=== PATIENT | male | born 1970 | race Caucasian/White ===

== ENCOUNTER 2017-04-29 22:04 | Emergency (ER) | payer BC ==
[2017-04-29] MEDS ORDERED: MORPHINE SULFATE 10 MG/ML INJ IV ONE (22:34)
[2017-04-29] MEDS ORDERED: ASPIRIN 81 MG TABLET, CHEWABLE PO ONE (22:34)
--- NOTE | 2017-04-29 22:36 | ER Document Report ---
ED Medical Screen (RME) - General Chief Complaint: Chest Pain > 30 Stated Complaint: CHEST PAIN Time Seen by Provider: 04/29/17 22:30 Mode of Arrival: Ambulatory Information source: Patient - HPI Patient complains to provider of: Chest pain Onset: Other - 4-5 days, worsening today Notes: 04/29/17 22:35 Patient is a 46-year-old male with a history of mitral valve prolapse, who was recently on several courses of antibiotics for lymphangitis of the left upper extremity, he finished vancomycin on Tuesday, over the past 4-5 days he developed some midsternal chest pain, which is now radiating to the left upper extremity with a tightness sensation, reports he had diaphoresis at onset of pain this evening, pain is unrelieved by hydrocodone which he took earlier today
--- NOTE | 2017-04-29 22:48 | EKG REPORT ---
SEVERITY:- ABNORMAL ECG - SINUS RHYTHM PROBABLE LEFT ATRIAL ABNORMALITY RIGHT BUNDLE BRANCH BLOCK : Confirmed by: Elida Varela 29-Apr-2017 22:48:18
[2017-04-29 22:58] LABS: HEMATOCRIT 42.8 % (37.9-51.0); HEMOGLOBIN 14.8 g/dL (13.5-17.0); HGB HCT DIFFERENCE 1.6; MEAN CORPUSCULAR HGB CONC 34.6 g/dL (32.0-36.0); MEAN CORPUSCULAR VOLUME 87 fl (80-97); RED BLOOD COUNT 4.94 10^6/uL (4.35-5.55); RED CELL DISTRIBUTION WIDTH 14.1 % (11.5-14.0); WHITE BLOOD COUNT 10.5 10^3/uL (4.0-10.5)
[2017-04-29 23:14] LABS: BASOPHILS % (MANUAL) 0 % (0-2); EOSINOPHILS % (MANUAL) 1 % (0-6); LYMPHOCYTES % (MANUAL) 32 % (13-45); TOTAL CELLS COUNTED 100; TOXIC GRANULATION SLIGHT
[2017-04-29 23:15] LABS: ANISOCYTOSIS SLIGHT
[2017-04-29 23:16] LABS: ALBUMIN 4.3 g/dL (3.5-5.0); ANION GAP 10 (5-19); ASPARTATE AMINO TRANSFERASE 29 U/L (17-59); BLOOD UREA NITROGEN 19 mg/dL (7-20); CALCIUM 9.3 mg/dL (8.4-10.2); CARBON DIOXIDE 30 mmol/L (22-30); CHLORIDE 102 mmol/L (98-107); GLUCOSE 97 mg/dL (75-110); POTASSIUM 4.4 mmol/L (3.6-5.0); SODIUM 142.3 mmol/L (137-145)
--- NOTE | 2017-04-29 23:16 | RADIOLOGY REPORT (SQ) ---
EXAM DESCRIPTION: CHEST PA/LAT COMPLETED DATE/TIME: 04/29/2017 11:08 pm REASON FOR STUDY: cp COMPARISON: None. EXAM PARAMETERS: NUMBER OF VIEWS: two views TECHNIQUE: Digital Frontal and Lateral radiographic views of the chest acquired. RADIATION DOSE: NA LIMITATIONS: none FINDINGS: LUNGS AND PLEURA: No opacities, masses or pneumothorax. No pleural effusion. MEDIASTINUM AND HILAR STRUCTURES: No masses or contour abnormalities. HEART AND VASCULAR STRUCTURES: Heart normal size. No evidence for failure. BONES: No acute findings. Pectus excavatum. HARDWARE: None in the chest. OTHER: No other significant finding. IMPRESSION: NO ACUTE CARDIOPULMONARY PROCESS. PECTUS EXCAVATUM. TECHNICAL DOCUMENTATION: JOB ID: [id number] [employer]- All Rights Reserved
[2017-04-29 23:19] LABS: ALANINE AMINOTRANSFERASE 56 U/L (21-72); ALKALINE PHOSPHATASE 61 U/L (38-126); BILIRUBIN,DIRECT 0.4 mg/dL (0.0-0.4); BILIRUBIN,TOTAL 0.5 mg/dL (0.2-1.3); CREATINE KINASE 42 U/L (55-170)
[2017-04-29 23:32] LABS: TROPONIN I < 0.012 ng/mL
[2017-04-30] MEDS ORDERED: KETOROLAC TROMETHAMINE INJ/PF 30 MG/1 ML SDV IV ONE (00:27)
[2017-04-30] MEDS ORDERED: LIDOCAINE 5% (700 MG) TRANSDERMAL ADH..PATCH TP ONE (00:40)
[2017-04-30] MEDS ORDERED: CEPHALEXIN 500 MG CAPSULE PO ONE (00:40)
--- NOTE | 2017-04-30 00:42 | ER Document Report ---
ED General - General Chief Complaint: Chest Pain > 30 Stated Complaint: CHEST PAIN Time Seen by Provider: 04/29/17 22:30 Mode of Arrival: Ambulatory Notes: Patient is a 46-year-old male with a past medical history of pectus excavatum who presents with 5 days of right-sided chest pain. Patient became concerned when the pain became constant for the last 2 days. Patient states that there is a one specific point on his right central lower chest in the intercostal space that is severely painful. He describes the pain as a constant, stabbing, severe pain. Nothing seems to worsen the pain and he states it does improve somewhat with NSAIDs but then the pain returns after the medication wears off. He has no history of similar symptoms in the past. He denies any associated shortness of breath, pleuritic pain, hemoptysis, unilateral leg swelling, nausea or vomiting. He states occasionally when the pain becomes very severe he does become diaphoretic resolves after the pain improved. He has no cardiac history. He is visiting from out of town so he has been unable see a primary care physician. Of note, patient also states that he has had an area of erythema and pain to the right forearm where he had an IV placed and vancomycin infused for thrombophlebitis of his left upper extremity. - Related Data Allergies/Adverse Reactions: cefaclor [From Ceclor] Allergy (Verified 04/29/17 22:36) Past Medical History - General Information source: Patient - Social History Smoking Status: Never Smoker Frequency of alcohol use: None Drug Abuse: None Lives with: Spouse/Significant other Family History: Reviewed & Not Pertinent Patient has suicidal ideation: No Patient has homicidal ideation: No Renal/ Medical History: Denies: Hx Peritoneal Dialysis Review of Systems - Review of Systems Notes: Constitutional: Negative for fever. HENT: Negative for sore throat. Eyes: Negative for visual changes. Cardiovascular: Positive for chest pain. Respiratory: Negative for shortness of breath. Gastrointestinal: Negative for abdominal pain, vomiting or diarrhea. Genitourinary: Negative for dysuria. Musculoskeletal: Negative for back pain. Skin: Positive for rash. Neurological: Negative for headaches, weakness or numbness. 10 point ROS negative except as marked above and in HPI. Physical Exam - Vital signs Vitals: Temp Pulse BP Pulse Ox 98.2 F 73 130/88 H 99 04/29/17 22:34 04/29/17 22:34 04/29/17 22:34 04/29/17 22:34 Interpretation: Normal Notes: PHYSICAL EXAMINATION: GENERAL: Well-appearing, well-nourished and in no acute distress. HEAD: Atraumatic, normocephalic. EYES: Pupils equal round and reactive to light, extraocular movements intact, sclera anicteric, conjunctiva are normal. ENT: nares patent, oropharynx clear without exudates. Moist mucous membranes. NECK: Normal range of motion, supple without lymphadenopathy LUNGS: Breath sounds clear to auscultation bilaterally and equal. No wheezes rales or rhonchi. HEART: Regular rate and rhythm without murmurs Chest wall: Point tenderness to palpation of the lower central rib spaces ABDOMEN: Soft, tenderness to the right upper quadrant and epigastrium on palpation with a positive Manning sign, normoactive bowel sounds. No guarding, no rebound. No masses appreciated. EXTREMITIES: Normal range of motion, no pitting or edema. No cyanosis. NEUROLOGICAL: No focal neurological deficits. Moves all extremities spontaneously and on command. PSYCH: Normal mood, normal affect. SKIN: Warm, Dry, normal turgor, no rashes or lesions noted. Course - Re-evaluation Re-evalutation: 04/30/17 00:41 Patient presents with 1 week of persistent pain to the right lower intercostal rib space. There is point tenderness to the area. Clinical history and exam are most consistent with musculoskeletal irritation. Low clinical suspicion for ACS given clinical history, exam, EKG without ST elevations or depressions, and negative initial troponin. HEART score less than or equal to 3. PE also seems unlikely given clinical history, absence of tachycardia or dyspnea. Patient is PERC criteria negative. CXR without evidence of pneumothorax or pneumonia. No widened mediastinum. Aortic dissection also seems unlikely given history, symmetric pulses, CXR, and vitals. Patient did also have some right upper quadrant abdominal tenderness as well as positive Manning sign on palpation of the abdomen so I will also obtain a right upper quadrant ultrasound to further evaluate for possible acute cholecystitis as etiology of the patient's right upper abdominal and right lower thoracic pain. Also obtain a lipase as patient did also have epigastric abdominal discomfort on palpation. I do not believe serial troponins are indicated as patient has had this pain for greater than 1 week and has been continuous for the past 2 days. Likewise patient's clinical history is not all consistent with ACS. His EKG does show right bundle branch block but he reports that he has a known history of this. Patient also has a cellulitis of the right forearm likely secondary to a venipuncture that he had done approximately a week ago. This will be treated with cephalexin HEART Score: History:0 EC Age:0 Risk Factors:0 Troponin:0 Total: 0 04/30/17 02:38 Right upper quadrant quadrant ultrasound is unremarkable. Pain improved. Final assessment: Chest pain in a patient without evidence of cardiac or other serious etiology on workup today. I discussed with patient that, based on their age, risk factors and emergency department testing today, the likelihood that their symptoms are related to a heart attack is very low (estimated risk of heart attack or over the next 30 days of less than 1%). The patient demonstrates decision making capacity and has verbalized an understanding of these risks to me. Based on this, the patient has chosen to follow-up as an outpatient. Usual chest pain return precautions reviewed. The patient states understanding and agreement with this plan. - Vital Signs Vital signs: Temp Pulse Resp BP Pulse Ox 98.2 F 73 36 H 125/88 H 96 04/29/17 22:34 04/29/17 22:34 04/30/17 03:01 04/30/17 03:01 04/30/17 03:01 - Laboratory Result Diagrams: 04/29/17 22:49 04/29/17 22:49 Laboratory results interpreted by me: 04/29/17 04/29/17 22:49 22:49 RDW 14.1 H Creatine Kinase 42 L - Diagnostic Test Radiology reviewed: Image reviewed, Reports reviewed Radiology results interpreted by me: 04/30/17 03:50 Chest x-ray: No acute infiltrate or pneumothorax - EKG Interpretation by Me Additional EKG results interpreted by me: 04/30/17 03:51 Normal sinus rhythm. Rate 68. Right bundle branch block. No ST elevations or depressions. QTC is 473. Discharge - Discharge Clinical Impression: Right-sided chest wall pain, Cellulitis of forearm, right Condition: Good Disposition: HOME, SELF-CARE Additional Instructions: You were seen today for chest pain. The exact cause of your pain is unclear. However, based on your cardiac enzyme testing, chest x-ray, and EKG it does not appear that it is from an immediately life-threatening cause at this time. Please return to emergency department immediately if you have worsening of your chest pain, shortness of breath, vomiting, become unable to exert yourself due to pain or difficulty breathing, you pass out, or have any pain that radiates into your arms, jaw, or back. Please also return if you have any additional symptoms that are concerning to you. The rash is likely due to infection of your skin. You need to take the antibiotics as prescribed. Do not stop even if the rash goes away until you have completed all the antibiotics. The area of redness was traced out here in the emergency department with a marking pen. You need to return to emergency department if the redness spreads outside of this area by more than 2 cm in any direction. You should also return if you develop fevers with temperature greater than 101, persistent vomiting, worsening pain, or have any other symptoms that are concerning to you. Prescriptions: Cephalexin Monohydrate [Keflex 500 mg Capsule] 500 mg PO Q6H 7 Days capsule
[2017-04-30 00:43] LABS: ADD ON TESTING BLD IN LAB ACKNOWLEDGE
--- NOTE | 2017-04-30 02:09 | RADIOLOGY REPORT (SQ) ---
EXAM DESCRIPTION: U/S ABDOMEN LIMITED W/O DOP CLINICAL HISTORY: ruq pain COMPARISON: None. TECHNIQUE: Real-time sonographic images of the right upper abdomen were obtained using a curved multihertz transducer. FINDINGS: The visualized portions of the pancreas are unremarkable. The visualized portions of the aorta and IVC are unremarkable. The liver has normal contour and echogenicity. Common bile duct measuring 0.3 cm. Hepatopedal flow in the portal vein. The gallbladder has a normal appearance. No gallstones identified. No wall thickening or pericholecystic fluid. Negative reported sonographic Manning sign. The right kidney measures 9.5 cm in length. No hydronephrosis, solid renal mass, or shadowing calculi. IMPRESSION: 1. No abnormality identified in the right upper abdomen by ultrasound criteria.
[2017-04-30 03:16] VITALS: BP 125/88
== END 2017-04-30 03:31 | disposition home or self-care (01) ==
LOC: ER 22:04
DX: R07.89 Other chest pain (principal); L03.113 Cellulitis of right upper limb
CPT/HCPCS: 93005; 99285; 96374; 96375; 36415; 82553; 82550; 83690; 85025; 80053; 84484; 71020; 76705; 93010; J1885; J2270

== ENCOUNTER 2017-05-01 23:59 | Emergency (ER) | payer BC ==
[2017-05-02] MEDS ORDERED: ASPIRIN 81 MG TABLET, CHEWABLE PO ONE (01:01)
[2017-05-02 01:12] LABS: ABSOLUTE BASOPHILS # (AUTO) 0.1 10^3/uL (0.0-0.2); ABSOLUTE EOSINOPHILS # (AUTO) 0.1 10^3/uL (0.0-0.6); ABSOLUTE MONOCYTES (AUTO) 1.4 10^3/uL (0.1-1.4); ABSOLUTE NEUT (AUTO) 7.2 10^3/uL (1.7-8.2); BASOPHILS % (AUTO) 0.6 % (0-2); HEMATOCRIT 42.4 % (37.9-51.0); HEMOGLOBIN 14.6 g/dL (13.5-17.0); HGB HCT DIFFERENCE 1.4; LYMPHOCYTES % (AUTO) 18.5 % (13-45); MEAN CORPUSCULAR HEMOGLOBIN 29.4 pg (27.0-33.4); MEAN CORPUSCULAR HGB CONC 34.3 g/dL (32.0-36.0); MEAN CORPUSCULAR VOLUME 86 fl (80-97); MONOCYTES % (AUTO) 12.8 % (3-13); RED BLOOD COUNT 4.95 10^6/uL (4.35-5.55); RED CELL DISTRIBUTION WIDTH 14.2 % (11.5-14.0); SEGMENTED NEUTROPHILS % (AUTO) 67.1 % (42-78); WHITE BLOOD COUNT 10.7 10^3/uL (4.0-10.5)
[2017-05-02 01:44] LABS: ALANINE AMINOTRANSFERASE 60 U/L (21-72); ALBUMIN 4.4 g/dL (3.5-5.0); ALKALINE PHOSPHATASE 74 U/L (38-126); ANION GAP 14 (5-19); ASPARTATE AMINO TRANSFERASE 33 U/L (17-59); BILIRUBIN,DIRECT 0.5 mg/dL (0.0-0.4); BILIRUBIN,TOTAL 0.7 mg/dL (0.2-1.3); BLOOD UREA NITROGEN 17 mg/dL (7-20); CALCIUM 9.6 mg/dL (8.4-10.2); CARBON DIOXIDE 25 mmol/L (22-30); CHLORIDE 104 mmol/L (98-107); CREATINE KINASE 78 U/L (55-170); CREATININE RESULT 1.19 mg/dL (0.52-1.25); GLUCOSE 117 mg/dL (75-110); POTASSIUM 4.1 mmol/L (3.6-5.0); SODIUM 143.4 mmol/L (137-145); TOTAL PROTEIN 7.2 g/dL (6.3-8.2)
[2017-05-02 01:55] LABS: CREATINE KINASE MB 1.51 ng/mL (<4.55)
[2017-05-02 01:56] LABS: TROPONIN I < 0.012 ng/mL
--- NOTE | 2017-05-02 03:01 | ER Document Report ---
ED Cardiac - General Chief Complaint: Chest Pain Stated Complaint: NECK PAIN Time Seen by Provider: 05/02/17 02:58 Mode of Arrival: Ambulatory Information source: Patient TRAVEL OUTSIDE OF THE [place] IN LAST 30 DAYS: No - HPI Patient complains to provider of: Chest pain, Other - NECK PAIN Use of: denies: Alcohol, Amphetamines, Bath salts, Caffeine, Cocaine, Decongestants Was the onset of pain: Gradual When did pain begin: SAT. 04/23 Is the pain a: New problem Chest pain location: Substernal Quality of pain: Mild, Tightness Chest pain radiation location: Neck - RIGHT Severity now: Mild Severity at worst: Moderate Cardiac risk factors: denies: Diabetes, Hypertension, Smoker, + Family history, Dyslipidemia, Hx CHF, Hx VA Positive cardiac history: No Associated symptoms: denies: Diaphoresis, Nausea/vomiting, Shortness of breath Exacerbated by: Denies Relieved by: Nothing Similar symptoms previously: No Recently seen / treated by doctor: Yes - DELILAH Cruz, 04/29 Notes: RECENTLY TREATED FOR LYMPHANGITIS W/ IV VANCOMYCIN BY PROVIDER IN [place], LAST DOSE 04/24. ASPIRIN WITHHELD DUE TO EXTREMELY LOW SUSPICION FOR THROMBOTIC ETIOLOGY FOR CHEST PAIN AND CONCURRENT CONCERN FOR BLEEDING COMPLICATIONS. - Related Data Allergies/Adverse Reactions: cefaclor [From [facility]] Allergy (Verified 04/29/17 22:36) Past Medical History - General Information source: Patient - Social History Smoking Status: Former Smoker Chew tobacco use (# tins/day): No Frequency of alcohol use: None Drug Abuse: None Family History: Reviewed & Not Pertinent Patient has suicidal ideation: No Patient has homicidal ideation: No - Past Medical History Cardiac Medical History: Reports: None Pulmonary Medical History: Reports: None EENT Medical History: Reports: None Neurological Medical History: Reports: None Endocrine Medical History: Reports: None Renal/ Medical History: Reports: None. Denies: Hx Peritoneal Dialysis Malignancy Medical History: Reports None GI Medical History: Reports: None Musculoskeltal Medical History: Reports Other - CONGENITAL PECTUS EXCAVATUM Skin Medical History: Reports Hx Cellulitis Psychiatric Medical History: Reports: None Past Surgical History: Reports: Other - PECTUS REPAIR @ AGE 7. Review of Systems - Review of Systems Constitutional: No symptoms reported EENT: See HPI Cardiovascular: See HPI Respiratory: No symptoms reported Gastrointestinal: No symptoms reported Genitourinary: No symptoms reported Musculoskeletal: No symptoms reported Skin: No symptoms reported Hematologic/Lymphatic: No symptoms reported Neurological/Psychological: No symptoms reported Physical Exam - Vital signs Vitals: Temp Pulse Resp BP Pulse Ox 98.2 F 101 H 16 142/78 H 99 05/02/17 00:17 05/02/17 00:17 05/02/17 00:17 05/02/17 00:17 05/02/17 00:17 Interpretation: Hypertensive, Tachycardic. No: Hypoxic, Tachypneic, Febrile - General General appearance: Appears well, Alert In distress: None - HEENT Head: Normocephalic Eyes: Normal Conjunctiva: Normal Ears: Normal Nasal: Normal Mouth/Lips: Normal Mucous membranes: Normal Pharynx: Normal Neck: Normal, Other - MILDLY TENDER OVER R. CAROTID ARTERY. NO JUGULAR DISTENTION. No: Carotid bruit - Respiratory Respiratory status: No respiratory distress Chest status: Other - MILD PERSISTENT PECTUS EXCAVATUM Breath sounds: Normal - Cardiovascular Rhythm: Regular Heart sounds: Normal auscultation Murmur: No - Abdominal Inspection: Normal Distension: No distension Bowel sounds: Normal - Back Back: Normal - Extremities General upper extremity: Normal inspection General lower extremity: Normal inspection. No: Tender, Edema - Neurological Neuro grossly intact: Yes Cognition: Normal Orientation: AAOx4 - Psychological Associated symptoms: Normal affect, Normal mood - Skin Skin Temperature: Warm Skin Moisture: Dry Skin Color: Normal Skin Turgor: Elastic Course - Vital Signs Vital signs: Temp Pulse Resp BP Pulse Ox 98.2 F 101 H 16 142/78 H 99 05/02/17 00:17 05/02/17 00:17 05/02/17 00:17 05/02/17 00:17 05/02/17 00:17 - Laboratory Result Diagrams: 05/02/17 00:56 05/02/17 00:56 Laboratory results interpreted by me: 05/02/17 05/02/17 00:56 00:56 WBC 10.7 H RDW 14.2 H Glucose 117 H Direct Bilirubin 0.5 H - Diagnostic Test Radiology reviewed: Image reviewed, Reports reviewed - EKG Interpretation by Me EKG shows normal: Sinus rhythm Rate: Tachycardia Barker/QRS: IVCD P Waves: RIKKI, LAE When compared to previous EKG there are: No significant change Discharge - Discharge Clinical Impression: Neck pain on right side, Right-sided chest wall pain Condition: Stable Disposition: HOME, SELF-CARE Instructions: Chest Pain of Unclear Cause ([facility]), Anti-Inflammatory Medication ( [facility]) Additional Instructions: REST, AVOID PAINFUL ACTIVITY. YOU MAY TAKE IBUPROFEN OR NAPROXEN FOR PAIN CONTROL IF NEEDED. ALSO, YOU MAY TAKE VALIUM IF NEEDED FOR MUSCLE RELAXATION. FOLLOW UP WITH YOUR PRIMARY CARE PROVIDER WHEN YOU RETURN HOME. RETURN TO E.R IF PROBLEMS ARISE, ANY TIME. Prescriptions: Diazepam [Valium 5 Mg Tablet] 5 mg PO Q8HP PRN #10 tablet PRN Reason: FOR MUSCLE RELAXATION
--- NOTE | 2017-05-02 03:35 | RADIOLOGY REPORT (SQ) ---
EXAM DESCRIPTION: CHEST SINGLE VIEW CLINICAL HISTORY: CP COMPARISON: None. FINDINGS: Single frontal view of the chest. Cardiomegaly. No consolidation, pneumothorax, or pleural effusion. No displaced rib fractures identified. Upper abdominal soft tissues are unremarkable. IMPRESSION: 1. No acute pulmonary process identified. Cardiomegaly.
--- NOTE | 2017-05-02 04:50 | RADIOLOGY REPORT (SQ) ---
EXAM DESCRIPTION: CT SOFT TISSUE NECK WITHOUT CLINICAL HISTORY: R. NECK PAIN, NO TRAUMA COMPARISON: None available TECHNIQUE: Axial CT of the neck soft tissues obtained without contrast. FINDINGS: No abnormalities of visualized orbits or globes. Paranasal sinuses are well aerated. Mastoid air cells are well aerated. No facial bone fractures identified. No abnormalities of visualized cervical spine are ribs. The tongue base is symmetric. No abnormalities of the parotid or submandibular glands. No cervical lymphadenopathy identified. Abnormality noted in the jugular carotid spaces. No abnormalities in the retail field representative buccal spaces. No well-circumscribed fluid collection in the retropharyngeal space. In the pharyngeal mucosal space there is palatine and lingual tonsils as well as the tonsillar pillars. No abnormalities of the thyroid gland. Superior mediastinal structures imaging no definite abnormalities. DLP: 700.18 mGy-cm IMPRESSION: 1. Enlargement of the palatine and lingual tonsils as well as the tonsillar pillars in the oropharynx. No definite fluid collection identified however evaluation for this is suboptimal due to lack of IV contrast. This exam was performed according to our departmental dose-optimization program, which includes automated exposure control, adjustment of the mA and/or kV according to patient size and/or use of iterative reconstruction technique.
[2017-05-02 06:38] VITALS: BP 121/70
--- NOTE | 2017-05-02 09:13 | EKG REPORT ---
SEVERITY:- ABNORMAL ECG - SINUS TACHYCARDIA BIATRIAL ABNORMALITIES NONSPECIFIC INTRAVENTRICULAR CONDUCTION DELAY ABNRM R PROG, CONSIDER ASMI OR LEAD PLACEMENT : Confirmed by: Elida Varela 02-May-2017 09:13:12
== END 2017-05-02 06:38 | disposition home or self-care (01) ==
LOC: ER 23:59
DX: R07.89 Other chest pain (principal); M54.2 Cervicalgia; Z87.891 Personal history of nicotine dependence
CPT/HCPCS: 36415; 70490; 71010; 80053; 82550; 82553; 84484; 85025; 93005; 93010; 99285